=== PATIENT | female | born 1975 | race Caucasian/White ===

== ENCOUNTER 2022-03-12 11:52 | Emergency (ER) | payer OTHER ==
[~2022-03-12 11:52] MED LIST: LORazepam 1 MG Tab ONE
[2022-03-12] MEDS ORDERED: Mirtazapine 15 MG Tab ONE (16:30)
[2022-03-12] MEDS ORDERED: QUEtiapine 25 MG Tab ONE (16:30)
[2022-03-12] MEDS ORDERED: busPIRone 10 MG Tab ONE (16:30)
[2022-03-12] MEDS ORDERED: QUEtiapine 100 MG Tab ONE (16:30)
[2022-03-12] MEDS ORDERED: LORazepam 1 MG Tab ONE (16:30)
[2022-03-13] MEDS ORDERED: busPIRone 10 MG Tab ONE (06:00)
[2022-03-13] MEDS ORDERED: LORazepam 1 MG Tab ONE ×2 (06:00)
[2022-03-13] MEDS ORDERED: QUEtiapine 25 MG Tab ONE ×2 (06:00)
[2022-04-07 18:22] LABS: ESTIMATED GFR 113 mL/min (>60)
== END 2022-03-13 11:52 | disposition home or self-care (01) ==
LOC: JP.ED 11:52
DX: R45.851 Suicidal ideations (principal)
CPT/HCPCS: 36415; 80053; 80305; 80307; 81025; 84443; 85027; 99284; A9270